=== PATIENT | male | born 1995 | race Caucasian/White ===

== ENCOUNTER 2017-06-10 13:45 | Outpatient (RCR) | payer OTHER ==
[~2017-06-10 13:45] MED LIST: CEPHALEXIN500 M1 PO; MOTRIN 200200 MG/TAB PO; NORCO 325 MG-51 TAB PO; PERCOCET 325 MG1 TA2 PO
== END 2017-06-11 11:51 | disposition home or self-care (01) ==
LOC: WSPT 13:45
DX: Z01.818 Encounter for other preprocedural examination (principal); S83.511D Sprain of anterior cruciate ligament of right knee, subsequent encounter
CPT/HCPCS: G0283-GP

== ENCOUNTER → 2018-06-05 | Outpatient (CLI) | payer BC, OTHER | LOC: COL.RAD 08:10 | DX: S49.82XA Other specified injuries of left shoulder and upper arm, initial encounter (principal); Y93.61 Activity, american tackle football | CPT/HCPCS: A9585; Q9967 ==